=== PATIENT | male | born 1975 | race Caucasian/White ===

== ENCOUNTER 2024-12-14 20:05 | Emergency (ER) | payer OTHER ==
[2024-12-14 21:38] LABS: Absolute Basophils 0.1 K/uL (0-0.5); Absolute Eosinophils 0.3 K/uL (0-0.5); Absolute Lymphocytes (CBC) 2.6 K/uL (0.7-4.9); Absolute Monocytes 0.4 K/uL (0.1-1.3); Absolute Neutrophil 7.1 K/uL (1.8-8.0); Basophils % 1.3 % (0-1.3); Eosinophils % 2.9 % (0-4.4); Hematocrit 42.1 % (39.6-49.0); Hemoglobin 14.6 g/dL (13.6-17.9); Lymphocytes % 24.6 % (15.3-44.8); MCHC 34.7 g/dL (32.0-36.0); MCV 92.4 fL (80-100); MPV 8.7 fL (7.6-11.3); Neutrophils % 67.2 % (41.7-73.7); Nucleated Red Blood Cells % 0.1 % (0-0); Platelets 202 thou/uL (152-406); RBC Red Blood Cell Count 4.55 M/uL (4.33-5.43); Red Cell Distribution Width 13.6 % (12.1-15.2)
[2024-12-14 21:46] LABS: PT Prothrombin Time 13.8 SECONDS (10-13.0); Protime INR 1.22
[2024-12-14 22:02] LABS: ALT/SGPT 41 U/L (16-61); AST/SGOT 17 U/L (15-37); Albumin 3.6 g/dL (3.4-5.0); Alkaline Phosphatase 88 U/L (45-117); BUN Blood Urea Nitrogen 17 mg/dL (7-18); Bicarbonate 28 mEq/L (21-32); Bilirubin Direct < 0.2 mg/dL (0-0.2); Bilirubin Total 0.2 mg/dL (0.2-1.0); Globulin 3.6 g/dL (2.3-3.5); Glomerular Filtration Rate 65 ml/min (=/>90); Glucose Level 116 mg/dL (74-106); Magnesium 2.1 mg/dL (1.6-2.4); NT PRO-BNP 37 pg/mL (<125); Protein, Total 7.2 g/dL (6.4-8.2); Sodium Level 141 mEq/L (136-145); Troponin High Sensitivity 3.2 pg/mL (<58.9)
--- NOTE | 2024-12-14 22:59 | RAD REPORT ---
EXAM: Angio Aorta For Dissection HISTORY: [facility] MAIN none chest pain Bed: COMPARISON: None TECHNIQUE: Multiple contiguous axial images were obtained a CTA of the chest and abdomen with contras t per aortic dissection protocol. Sagittal and coronal 3-D MIP reformats were performed. One or more of the following dose reduction techniques were used: Automated exposure control, adjustment of the mA and kV according to patient size, and iterative reconstruction. Unless otherwise specified, incidental findings do not require dedicated imaging follow-up. FINDINGS: PULMONARY ARTERIES: Normal in caliber without filling defects to suggest pulmonary emboli. MEDIASTINUM: Mildly prominent right hilar lymph node measuring 1.2 cm, nonspecific and could be react rosette. No other hilar or mediastinal lymphadenopathy. LUNGS: No focal infiltrates or masses. PLEURAL SPACE: No pleural effusion or pneumothorax. LIVER: Unremarkable. KIDNEYS: Unremarkable. SPLEEN: Unremarkable. PANCREAS: Unremarkable. BOWEL: Unremarkable. RETROPERITONEUM: No lymphadenopathy BONES: Degenerative changes in the spine. Sequelae of hardware fusion at T12-L1, and of the right isc hial bone. Deformity of the lower right scapula with heterotopic ossification in the underlying muscles, nonspecific and could relate to remote trauma ASCENDING THORACIC AORTA: Normal caliber without evidence of dissection or aneurysmal dilatation. DESCENDING THORACIC AORTA: Normal caliber without evidence of dissection or aneurysmal dilatation. ABDOMINAL AORTA: Normal caliber without evidence of dissection or aneurysmal dilatation. CELIAC TRUNK: Patent SMA: Patent ROM: Patent RENAL ARTERIES: Bilateral single renal arteries without significant atherosclerotic disease IMPRESSION: No evidence of thoracic or abdominal aortic aneurysm or dissection. Other incidental findings as above.
[2024-12-14] MEDS ORDERED: NA CHLORIDE 0.9% 1,000 ML ONE ×2 (23:01→23:04)
[2024-12-14] MEDS ORDERED: AMIODARONE HCL 150 MG/3 ML INJ IV ONE (23:43)
[2024-12-14] MEDS ORDERED: AMIODARONE IN DEXTROSE,ISO-OSM 360 MG/200 ML BAG IV ONE (23:44)
[2024-12-14] MEDS ORDERED: D5W 100 ML IV ONE (23:44)
[2024-12-15] MEDS ORDERED: ONDANSETRON 4 MG/2 ML VIAL ONE (00:02)
[2024-12-15] MEDS ORDERED: LORazepam 2 MG/ML VIAL ONE (00:03)
[2024-12-15] MEDS ORDERED: HEPARIN 5000 UNIT/ML 1 ML VIAL ONE (00:04)
[2024-12-15] MEDS ORDERED: ASPIRIN 81 MG CHEWABLE TABLET ONE (00:04)
[2024-12-15] MEDS ORDERED: MORPHINE 4 MG/ML SYR ONE (00:05)
[2024-12-15] MEDS ORDERED: CALCIUM GLUCONATE 1 GM IVPB 1 GM/50 ML BAG IV ONE (00:05)
[2024-12-15] MEDS ORDERED: NA CHLORIDE 0.9% 1,000 ML ONE ×2 (00:05→02:38)
[2024-12-15] MEDS ORDERED: HEPARIN/D5W 25,000 UNIT/500 ML BAG IV ONE (00:05)
[2024-12-15] MEDS ORDERED: METOPROLOL TARTRATE 5 MG/5 ML INJ IV ONE ×2 (01:13→02:38)
--- NOTE | 2024-12-15 02:41 | ER ---
Nurse's Notes [facility] Name: Dalton Toney Age: 49 yrs Sex: Male : 1975 Arrival Date: 12/14/2024 Time: 20:05 Bed 2 Private MD: Diagnosis: Unstable angina-Ventricular tachycardia ;Unspecified atrial fibrillation-with RVR, new onset Presentation: 12/14 20:52 Chief complaint: Patient states: reports sitting in judaism and sudden onset of chest bm8 pain, pressure. Coronavirus screen: Vaccine status: Patient reports being unvaccinated. Ebola Screen: Patient negative for fever greater than or equal to 101.5 degrees Fahrenheit, and additional compatible Ebola Virus Disease symptoms Patient denies exposure to infectious person. Patient denies travel to an Ebola-affected area in the 21 days before illness onset. No symptoms or risks identified at this time. Initial Sepsis Screen: Does the patient meet any 2 criteria? No. Patient's initial sepsis screen is negative. Does the patient have a suspected source of infection? No. Patient's initial sepsis screen is negative. Risk Assessment: Do you want to hurt yourself or someone else? Patient reports no desire to harm self or others. Onset of symptoms was December 14, 2024 at 19:00. 20:52 Method Of Arrival: Ambulatory bm8 20:52 Acuity: MARCY 2 bm8 Triage Assessment: 20:54 General: Appears in no apparent distress. uncomfortable, Behavior is calm, cooperative, bm8 appropriate for age. Pain: Complains of pain in anterior aspect of left upper chest Pain does not radiate. Pain currently is 1 out of 10 on a pain scale. at worst was 8 out of 10 on a pain scale. Quality of pain is described as pressure, Pain began 2 hours ago. Is intermittent. EENT: No deficits noted. No signs and/or symptoms were reported regarding the EENT system. Neuro: No deficits noted. Cardiovascular: Reports chest pain, lightheadedness, Denies Heart tones S1 S2 present Capillary refill < 3 seconds in bilateral fingers Patient's skin is warm and dry. Respiratory: Airway is patent Respiratory effort is even, unlabored. GI: No signs and/or symptoms were reported involving the gastrointestinal system. : No signs and/or symptoms were reported regarding the genitourinary system. Derm: No signs and/or symptoms reported regarding the dermatologic system. Musculoskeletal: No signs and/or symptoms reported regarding the musculoskeletal system. Historical: - Allergies: 20:54 No Known Allergies; bm8 - Home Meds: 20:54 Viagra 25 mg Oral tablet 1 tab bi weekly PRN [Active]; bm8 - PMHx: 20:54 erectile dysfucntion; bm8 - PSHx: 20:54 right hip; left knee; right and left shoulder repair; left foot repair; Appendectomy; bm8 - Immunization history:: Adult Immunizations up to date. - Infectious Disease History:: Denies. - Family history:: not pertinent. - Social history:: Smoking status: Patient reports the use of cigarette tobacco products, Patient/guardian denies using alcohol, street drugs. Screenin:[address] [facility] ED Fall Risk Assessment (Adult) History of falling in the last 3 months, vc1 including since admission No falls in past 3 months (0 pts) Confusion or Disorientation No (0 pts) Intoxicated or Sedated No (0 pts) Impaired Gait No (0 pts) Mobility Assist Device Used No (0 pt) Altered Elimination No (0 pt) Score/Fall Risk Level 0 - 2 = Low Risk Oriented to surroundings, Maintained a safe environment, Educated pt \T\ family on fall prevention, incl call for assistance when getting out of bed, Provided non-skid footwear, Hourly rounding (assess needs \T\ fall precautionary measures) done. Abuse screen: Denies threats or abuse. Nutritional screening: No deficits noted. Tuberculosis screening: No symptoms or risk factors identified. Assessment: 22:56 Reassessment: Patient appears in no apparent distress at this time. No changes from vc1 previously documented assessment. Patient and/or family updated on plan of care and expected duration. Pain level reassessed. Patient is alert, oriented x 3, equal unlabored respirations, skin warm/dry/pink. 23:30 General: Appears in no apparent distress. comfortable, Behavior is calm, cooperative. al5 Pain: Denies pain. Neuro: Level of Consciousness is awake, alert, obeys commands, Oriented to person, place, time, situation. Cardiovascular: Capillary refill < 3 seconds Patient's skin is warm and dry. Rhythm is atrial fibrillation with rapid ventricular response. Respiratory: Airway is patent Respiratory effort is even, unlabored, Respiratory pattern is regular, symmetrical. GI: No signs and/or symptoms were reported involving the gastrointestinal system. : No signs and/or symptoms were reported regarding the genitourinary system. EENT: Derm: Skin is intact, is healthy with good turgor, Skin is pink, warm \T\ dry. normal. Musculoskeletal: No signs and/or symptoms reported regarding the musculoskeletal system. 12/15 01:00 Reassessment: Patient appears in no apparent distress at this time. No changes from al5 previously documented assessment. Patient and/or family updated on plan of care and expected duration. Pain level reassessed. Patient is alert, oriented x 3, equal unlabored respirations, skin warm/dry/pink. 02:53 Reassessment: Patient appears in no apparent distress at this time. No changes from al5 previously documented assessment. Patient and/or family updated on plan of care and expected duration. Pain level reassessed. Patient is alert, oriented x 3, equal unlabored respirations, skin warm/dry/pink. 04:25 Reassessment: Patient appears in no apparent distress at this time. No changes from al5 previously documented assessment. Patient and/or family updated on plan of care and expected duration. Pain level reassessed. Patient is alert, oriented x 3, equal unlabored respirations, skin warm/dry/pink. 06:00 Reassessment: Patient appears in no apparent distress at this time. No changes from al5 previously documented assessment. Patient and/or family updated on plan of care and expected duration. Pain level reassessed. Patient is alert, oriented x 3, equal unlabored respirations, skin warm/dry/pink. 06:37 Reassessment: gave report to agustina chow at [facility] ER. al5 07:18 Reassessment: Patient appears in no apparent distress at this time. Patient and/or ph family updated on plan of care and expected duration. Pain level reassessed. Patient is alert, oriented x 3, equal unlabored respirations, skin warm/dry/pink. [facility] at bedside. Vital Signs: 12/14 20:52 BP 119 / 73; Pulse 88; Resp 18; Temp 98.7; Pulse Ox 96% ; Weight 113.4 kg; Height 5 ft. bm8 11 in. ; Pain 09/16; 22:45 BP 112 / 75; Pulse 79; Resp 20; Pulse Ox 96% ; vc1 23:30 BP 111 / 77; Pulse 154; Resp 18; Pulse Ox 98% ; al5 23:57 Weight 118.84 kg (M); vc1 12/15 00:00 BP 132 / 88; Pulse 152; Resp 12; Pulse Ox 97% ; al5 00:30 BP 115 / 77; Pulse 151; Resp 14; Pulse Ox 97% ; al5 01:45 BP 98 / 67; Pulse 137; Resp 18; Pulse Ox 97% ; al5 02:00 BP 95 / 64; Pulse 135; Resp 15; Pulse Ox 94% ; al5 02:30 BP 103 / 75; Pulse 138; Resp 18; Pulse Ox 94% ; al5 03:00 BP 101 / 72; Pulse 131; Resp 14; Pulse Ox 99% ; al5 03:30 BP 92 / 54; Pulse 131; Resp 12; Pulse Ox 99% ; al5 04:00 BP 91 / 68; Pulse 137; Resp 13; Pulse Ox 98% ; al5 04:30 BP 94 / 67; Pulse 139; Resp 14; Pulse Ox 99% ; al5 05:00 BP 92 / 67; Pulse 137; Resp 16; Pulse Ox 99% ; al5 05:30 BP 107 / 87; Pulse 142; Resp 14; Pulse Ox 100% ; al5 06:00 BP 102 / 69; Pulse 147; Resp 14; Pulse Ox 95% ; al5 06:30 BP 94 / 81; Pulse 145; Resp 14; Pulse Ox 96% ; al5 12/14 20:52 Body Mass Index 34.87 (118.84 kg, 180.34 cm) bm8 12/14 20:52 Pain Scale: Adult bm8 Ever Coma Score: 12/14 21:55 Eye Response: spontaneous(4). Motor Response: obeys commands(6). Verbal Response: sp4 oriented(5). Total: 15. ED Course: 20:06 Patient arrived in ED. im 20:13 Jean Hidalgo MD is Attending Physician. sp4 20:54 Triage completed. bm8 20:57 Arm band placed on right wrist. bm8 21:00 Patient has correct armband on for positive identification. Bed in low position. Call vc1 light in reach. Provided Education on: plan of care. desk monitor on. Pulse ox on. NIBP on. 21:20 Basic Metabolic Panel Sent. vk 21:20 CBC with Diff Sent. vk 21:20 LFT's Sent. vk 21:20 Magnesium Sent. vk 21:20 NT PRO-BNP Sent. vk 21:20 PT-INR Sent. vk 21:20 Troponin HS Sent. vk 21:20 Initial lab(s) drawn, by me, sent to lab. Inserted saline lock: 20 gauge in left vk antecubital area, using aseptic technique. Blood collected. Flushed with 10 mL NS. 22:23 CT Aorta for Dissection In Process Unspecified. EDMS 22:57 Patient maintains SpO2 saturation greater than 95% on room air. vc1 23:07 Troponin High Sensitivity Sent. vc1 23:58 Inserted saline lock: 20 gauge in right antecubital area, using aseptic technique. rv1 Flushed with 10 mL NS. 04 00:43 Nicole Noriega, AGUSTINA is Primary Nurse. vc1 01:52 No provider procedures requiring assistance completed. al5 02:39 Yomaira Mendoza MD is Hospitalizing Provider. sp4 04:13 Initiated transfer with Erlinda M[facility]quez at [facility]. Faxed pt clinicals for review. rv1 07:19 Patient transferred, IV remains in place. ph Administered Medications: 12/14 23:04 Drug: NS 0.9% IV 1000 ml IV at 1000 ml once; to be given as a bolus over 60 minutes rg5 Route: IV; Rate: 1000 ml; Site: left antecubital; 12/15 00:46 Follow up: Response: No adverse reaction; IV Status: Completed infusion; IV Intake: vc1 1000ml 12/14 23:56 Drug: amiodarone IVPB 150 mg 100 ml IVPB once over 10 mins; (mix in D5W) Volume: 100 vc1 ml; Route: IVPB; Infused Over: 10 mins; Site: right antecubital; 12/15 00:10 Follow up: Response: No adverse reaction; IV Status: Completed infusion; IV Intake: al5 100ml 00:00 Drug: amiodarone IVPB 900 mg, D5W IV 500 ml IVPB at 1 mg/min continuous; for 6 hrs, vc1 then change to 0.5 mg/min Route: IVPB; Rate: 1 mg/min; Site: left antecubital; 02:45 Follow up: Response: No adverse reaction; IV Status: Infusion continued upon admission al5 06:31 Follow up: Response: No adverse reaction; IV Status: Completed infusion al5 00:10 Drug: morphine IVP or IV 4 mg IVP once over 4 mins Route: IVP; Infused Over: 4 mins; vc1 Site: right hand; :44 Follow up: Response: No adverse reaction al5 00:10 Drug: Ondansetron IVP 4 mg IVP once; over 2 minutes Route: IVP; Site: right hand; vc1 02:44 Follow up: Response: No adverse reaction al5 00:10 Drug: Calcium Gluconate IVPB 1 grams IVPB once over 60 mins; (mix in NS 100 mL) Route: vc1 IVPB; Infused Over: 60 mins; Site: right hand; 01:10 Follow up: Response: No adverse reaction; IV Status: Completed infusion; IV Intake: [id number] 00:10 Drug: Ativan IVP 1 mg IVP once Route: IVP; Site: right hand; vc1 02:43 Follow up: Response: No adverse reaction al5 00:10 Drug: Aspirin PO Chewable Tablet 324 mg PO once; 81 mg tablets x 4 Route: PO; vc1 02:43 Follow up: Response: No adverse reaction al5 00:10 Drug: HEParin IV 5000 units IV at bolus once {Co-Signature: sydnie (Izabela Campbell RN).} Route: IV; Rate: bolus; Site: left antecubital; :45 Follow up: Response: No adverse reaction al5 02:45 Follow up: IV Status: Completed infusion; IV Intake: 1ml al5 00:10 Drug: Heparin (VT Drip) 12 units/kg/hr - ([place] [address] units, D5W IV 500 ml) IV at vc1 calculated rate Per protocol; Max initial rate 1000 units/hr {Co-Signature: sydnie (Izabela Campbell RN).} Route: IV; Rate: calculated rate; Site: left antecubital; :45 Follow up: Response: No adverse reaction; IV Status: Infusion continued upon admission al5 00:10 Drug: NS 0.9% IV 1000 ml IV at 125 ml/hr once; to be given as a bolus over 60 minutes vc1 Route: IV; Rate: 125 ml/hr; Site: right hand; :45 Follow up: Response: No adverse reaction; IV Status: Infusion continued upon admission al5 01:19 Drug: Metoprolol IVP 5 mg IVP once; Hold for SBP <100 or HR <60. Route: IVP; Site: [facility] right hand; 02:44 Follow up: Response: No adverse reaction; No change in condition al5 02:43 Drug: NS 0.9% IV 1000 ml IV at 1000 ml once; to be given as a bolus over 60 minutes al5 Route: IV; Rate: 1000 ml; Site: right hand; 04:27 Follow up: Response: No adverse reaction; IV Status: Completed infusion; IV Intake: al5 1000ml 02:43 Drug: Metoprolol IVP 5 mg IVP once; Hold for SBP <100 or HR <60. Route: IVP; Site: [facility]; 04:27 Follow up: Response: No adverse reaction; No change in condition al5 03:02 Drug: Albumin IVPB 25 grams 100 ml IVPB once; (Note: Albumin 25% concentration) Volume: al5 100 ml; Route: IVPB; Site: [facility]; 04:26 Follow up: Response: No adverse reaction; IV Status: Completed infusion; IV Intake: al5 100ml 06:30 Drug: Diltiazem IVP 10 mg IVP once; Over 2 minutes Route: IVP; Site: right antecubital; al5 07:20 Follow up: Response: No adverse reaction ph 06:30 Drug: Diltiazem IV 5 mg/hr IV at calculated rate See Administration Instructions; al5 (standard dilution 125 mg diltiazem mixed in 125 mL NS; final concentration 1mg/mL). Recommended max rate 15 mg/hr; Titrate 5 mg/hr as often as every 15 minutes to achieve goal (see titration policy); Goal parameter HR less than 100 bpm Route: IV; Rate: calculated rate; Site: right antecubital; 07:19 Follow up: Response: No adverse reaction; IV Status: Infusion continued upon transfer ph Medication: 12/14 22:57 VIS not applicable for this client. vc1 Intake: 12/15 00:10 IV: 100ml; Total: 100ml. al5 00:46 IV: 1000ml; Total: 1100ml. vc1 01:10 IV: 50ml; Total: 1150ml. al5 02:45 IV: 1ml; Total: 1151ml. al5 04:26 IV: 100ml; Total: 1251ml. al5 04:27 IV: 1000ml; Total: 2251ml. al5 Outcome: 02:40 Decision to Hospitalize by Provider. sp4 06:27 ER care complete, transfer ordered by . rv1 07:19 Transferred by ground EMS [facility] to [facility] Transfer ph form completed. X-rays sent w/ patient. 07:19 Condition: stable 07:19 Instructed on the need for transfer, 07:33 Patient left the ED. iw Signatures: Dispatcher [employer] EDMS June Ibrahim, RN RN iw Mallorie Cash RN AGUSTINA ph Calcote, Nicole RN RN vc1 Xin Amanda rv1 Jean Hidalgo MD MD sp4 Shauna Gotti Vivian vk McDonald, Brad RN RN bm8 Bob Coleman RN RN rgIzabela Padron RN RN al5 Izabela Campbell RN al5 Corrections: (The following items were deleted from the chart) 12/14 20:56 20:54 PSHx: None; bm8 bm8 12/15 02:46 02:45 IV Status: Infusion continued upon admission al5 al5
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
[2024-12-15] MEDS ORDERED: ALBUMIN HUMAN 25% 100 ML IV ONE (02:57)
[2024-12-15] MEDS ORDERED: ACETAMINOPHEN 500 MG TAB PO PRN (04:38)
[2024-12-15] MEDS ORDERED: ONDANSETRON 4 MG/2 ML VIAL IV PRN (04:38)
--- NOTE | 2024-12-15 04:49 | P.HP ---
Patient History Date of Service: 12/15/24 History of Present Illness: 49-year-old male with minimal past medical history presenting with A-fib with RVR. He denies any illicit drug use, fevers, chills, chest pain. He is seen resting comfortably in the ED. He has no acute complaints at this time. He remains in A-fib with RVR despite being on amiodarone. Heparin drip running at bedside. Review of Systems 10-point ROS is otherwise unremarkable General: Weakness, As per HPI Physical Examination - Physical Exam General: In no apparent distress HEENT: Atraumatic, Normocephalic Neck: Supple Respiratory: Clear to auscultation bilaterally Cardiovascular: No edema Capillary refill: <2 Seconds Gastrointestinal: Normal bowel sounds Musculoskeletal: No clubbing, No swelling Integumentary: No rashes Neurological: Normal gait, Normal speech Lymphatics: No axilla or inguinal lymphadenopathy - Studies Laboratory Data (last 24 hrs) 12/14/24 12/14/24 12/14/24 21:15 21:15 21:15 WBC 10.50 Hgb 14.6 Hct 42.1 Plt Count 202 PT 13.8 H INR 1.22 Sodium 141 Potassium 4.0 BUN 17 Creatinine 1.36 H Glucose 116 H Magnesium 2.1 Total Bilirubin 0.2 AST 17 ALT 41 Alkaline Phosphatase 88 Assessment and Plan - Plan A-fib with RVR Tobacco dependence History of TBI Elevated creatinine Admit to ICU, telemetry Consult cardiology s/p fluid bolus Continue amiodarone drip Check TSH, blood cultures Urine toxicology pending DVT prophylaxis with heparin gtt - Advance Directives Does patient have a Living Will: No Does patient have a Durable POA for Healthcare: No
[2024-12-15] MEDS ORDERED: dilTIAZem HCL 25 MG/5 ML VIAL IV ONE (06:13)
[2024-12-15] MEDS ORDERED: NA CHLORIDE 0.9% 50 ML ONE (06:21)
[2024-12-15 08:02] VITALS: TEMP 98.7
[2024-12-15 08:20] VITALS: BP 94/81; O2SAT 96
--- NOTE | 2024-12-15 10:38 | P.CNS ---
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 [facility] Home medications list reviewed: Yes Review of Systems is unable to be obtained (patient was transferred from ER) Physical Examination Temp Pulse Resp BP Pulse Ox 98.7 F 145 H 14 94/81 12/14/24 20:52 12/15/24 06:30 12/15/24 06:30 12/15/24 06:30 Laboratory Data (last 24 hrs) 12/14/24 12/14/24 12/14/24 21:15 21:15 21:15 WBC 10.50 Hgb 14.6 Hct 42.1 Plt Count 202 PT 13.8 H INR 1.22 Sodium 141 Potassium 4.0 BUN 17 Creatinine 1.36 H Glucose 116 H Magnesium 2.1 Total Bilirubin 0.2 AST 17 ALT 41 Alkaline Phosphatase 88 - Problems (1) Atrial fibrillation Current Visit: Yes Status: Acute Plan: Patient was transferred from ER to [facility] before being seen, discussed case with ER MD earlier and amiodarone bolus was given and drip started per recommendations.
--- NOTE | 2024-12-15 11:45 | EKG ---
Test Date: 2024-12-14 Test Time: 23:44:00 Explosive Ordnance Manager: RV MEASUREMENT RESULTS: Intervals: Rate: 162 ID: QRSD: [id number] QT: 302 QTc: 495 [place]: P: ID: [id number]: [id number] T: -80 INTERPRETIVE STATEMENTS: Atrial fibrillation with rapid ventricular response with premature ventricular or aberrantly conducted complexes Marked ST abnormality, possible inferior subendocardial injury Abnormal ECG Compared to ECG 12/14/2024 20:18:18 Ventricular premature complex(es) now present ST (T wave) deviation now present Sinus rhythm no longer present Electronically Signed On 12-15-24 11:44:24 CDT by Vincent Lepe
--- NOTE | 2024-12-15 11:46 | EKG ---
Test Date: 2024-12-14 Test Time: 20:18:18 Blast Setter: RV MEASUREMENT RESULTS: Intervals: Rate: 96 MO: 130 QRSD: 80 QT: 348 QTc: 439 [place]: P: 55 MO: 130 QRS: 2 T: 42 INTERPRETIVE STATEMENTS: Normal sinus rhythm Normal ECG No previous ECG available for comparison Electronically Signed On 12-15-24 11:45:23 CDT by Vincent Lepe
--- NOTE | 2024-12-16 07:31 | P.SSS ---
Patient History Date of Service: 12/16/24 Reason for admission: atrial fibrillation History of Present Illness: 49-year-old male with minimal past medical history presenting with A-fib with RVR. He denies any illicit drug use, fevers, chills, chest pain. He is seen resting comfortably in the ED. He has no acute complaints at this time. He remains in A-fib with RVR despite being on amiodarone. Heparin drip running at bedside. Physical Examination - Vital Signs Temperature: 98.7 F Blood Pressure: 94/81 Pulse: 145 Respirations: 14 Treatment Summary: Patient was seen in the emergency room for A-fib with RVR. He was started on amiodarone drip. He was recommended for admission however he refused to sign admission paperwork. [facility] is [facility] for transfer - Disposition Dis[facility]: [facility]
== END 2024-12-15 07:33 ==
LOC: ER 20:05 → ERHOLD 12-15 04:38 → UNDOADMIN 12-15 04:38 → UNDODISIN 12-15 07:19
DX: I48.91 Unspecified atrial fibrillation (principal); I20.0 Unstable angina; F17.210 Nicotine dependence, cigarettes, uncomplicated; Z87.820 Personal history of traumatic brain injury
CPT/HCPCS: 93005 ×2; 85025; 80048; 36415; 83735; 85610; 80076; 84484 ×3; 83880; 71275; 74175; 99285; Q9967; J1644; J0612; J0282 ×2; J2405; P9047; J7030 ×4